=== PATIENT | male | born 1945 | race Asian ===

== ENCOUNTER 2021-03-29 06:26 | Day surgery (SDC) | payer OTHER ==
[2021-03-28 14:21] LABS: COVID AG,FIA SOURCE NASOPHARYNGEAL
[~2021-03-29] VITALS: Ht 162.6 cm; Wt 75.0 kg
[~2021-03-29 06:26] MED LIST: ALBU2TAB42 PO; ALBU8.5H8 IH; ALLO100T2 PO; ASPI-1450 PO; BUDE10.2 IH; CELE200 PO; CHOL-35 PO; ESOM20CA31 PO; IPRA4AER IH; LOSA25TA21 PO; MONT-35 PO; NEBI5TAB2 PO; OLME20TA10 PO; PRAV20TA4 PO; SODIUM CHLORIDE 0.9% 1,000 ML ONE
[2021-03-29] MEDS ORDERED: SODIUM CHLORIDE 0.9% 1,000 ML IV ONE (07:00)
[2021-03-29] MEDS ORDERED: MIDAZOLAM HCL 5 MG/ML VIAL ONE (07:28)
[2021-03-29] MEDS ORDERED: FentaNYL CITRATE PF 100 MCG/2 ML VIAL ONE (07:28)
[2021-03-29 08:20] LABS: GLUCOMETER DEV NAME(LOC) SDS.; GLUCOSE,POINT OF CARE 323 MG/DL (70-110)
[2021-03-29] MEDS ORDERED: MethylPREDNISolone SOD SUCC 125 MG/2 ML VIAL IVP ONE (09:15)
[2021-03-29] MEDS ORDERED: SODIUM CHLORIDE 0.9% 1,000 ML ONE (09:20)
[2021-03-29] MEDS ORDERED: MethylPREDNISolone SOD SUCC 125 MG/2 ML VIAL ONE (09:46)
[2021-03-29] MEDS ORDERED: OXYGEN THERAPY IH SCH (20:00)
== END 2021-03-29 11:30 | disposition home or self-care (01) ==
LOC: SURGERY 06:26
PROVIDERS: ATTEND Internal Medicine Critical Care Medicine
DX: J38.4 Edema of larynx (principal); B37.0 Candidal stomatitis; E11.9 Type 2 diabetes mellitus without complications; Z79.82 Long term (current) use of aspirin; J45.909 Unspecified asthma, uncomplicated; Z98.890 Other specified postprocedural states
CPT/HCPCS: 31623; 31624; 71045; 82962; 87015; 87070; 87077; 87101; 87206; 87220; 87426; 88184; 88185; C9803; J2250; J2930; J3010; J7030; 87186; 87205; 88108; 88312

== ENCOUNTER 2022-06-25 05:46 | Day surgery (SDC) | payer OTHER ==
[~2022-06-25] VITALS: Ht 154.9 cm; Wt 77.7 kg
[~2022-06-25 05:46] MED LIST changes: +ALLO-97 PO; -ALLO100T2 PO; -CHOL-35 PO; +CHOL25TA4 PO; +LOSA-381 PO; -LOSA25TA21 PO; -OLME20TA10 PO; +OLME20TA73 PO; -SODIUM CHLORIDE 0.9% 1,000 ML ONE
[2022-06-25] MEDS ORDERED: SODIUM CHLORIDE 0.9% 1,000 ML IV ONE (06:30)
[2022-06-25 06:44] LABS: COVID AG,FIA SOURCE NASAL SWAB
[2022-06-25] MEDS ORDERED: SODIUM CHLORIDE 0.9% 1,000 ML ONE (07:02)
[2022-06-25 08:01] LABS: GLUCOMETER DEV NAME(LOC) SDS.; GLUCOSE,POINT OF CARE 86 MG/DL (70-110)
[2022-06-25] MEDS ORDERED: MIDAZOLAM HCL 5 MG/ML VIAL ONE (08:14)
[2022-06-25] MEDS ORDERED: FentaNYL CITRATE PF 100 MCG/2 ML VIAL ONE (08:14)
[2022-06-25] MEDS ORDERED: MethylPREDNISolone SOD SUCC 125 MG/2 ML VIAL IVP ONE (09:15)
[2022-06-25] MEDS ORDERED: MethylPREDNISolone SOD SUCC 125 MG/2 ML VIAL ONE (09:25)
[2022-06-25] MEDS ORDERED: ALBUTEROL SULFATE 2.5 MG/0.5 ML NEB SOLUTION NEB ONE (12:00)
[2022-06-25] MEDS ORDERED: BENZOCAINE 20% 50 MCG/SPRAY 57 GM TP ONE (12:00)
[2022-06-25] MEDS ORDERED: LIDOCAINE 2% 11 ML JELLY TP ONE (12:00)
[2022-06-25] MEDS ORDERED: LIDOCAINE 4% 50 ML SOLUTION TP ONE (12:00)
[2022-06-25] MEDS ORDERED: OXYGEN THERAPY IH SCH (20:00)
== END 2022-06-25 11:20 | disposition home or self-care (01) ==
LOC: SURGERY 05:46
PROVIDERS: ATTEND Internal Medicine Critical Care Medicine
DX: J38.4 Edema of larynx (principal); B37.0 Candidal stomatitis; I10 Essential (primary) hypertension; E11.9 Type 2 diabetes mellitus without complications; J45.909 Unspecified asthma, uncomplicated; Z79.899 Other long term (current) drug therapy; Z20.822 Contact with and (suspected) exposure to COVID-19; Z98.890 Other specified postprocedural states
CPT/HCPCS: 31623; 82962; 87101; 87220; 87070; 88108; 88305; 31624; 71045; 87015; 87426; 87206; J3010; J2930; J2250; Q9967; J7030; C9803; J7613; Z7610